=== PATIENT | male | born 1990 | race American Indian/Alaskan Native ===

== ENCOUNTER 2018-01-24 08:23 | Emergency (ER) | payer MEDICAID ==
[2018-01-24 08:30] VITALS: BMI 13.2
[2018-01-24 08:31] VITALS: RESP 20; O2SAT 99
--- NOTE | 2018-01-24 08:46 | ED PDOC ---
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 for medical and psychiatric evaluation prior to incarceration. Patient admits to EtOH consumption. Denies suicidal or homicidal ideations. Patient has no medical complaints at this time. Past Medical History Reviewed: Historical Data, Nursing Documentation, Vital Signs Vital Signs: Last Vital Signs Temp 98.6 F 01/24/18 08:30 Pulse 78 01/24/18 08:30 Resp 20 01/24/18 08:30 BP 128/78 01/24/18 08:30 Pulse Ox 99 01/24/18 08:30 - Medical History PMH: No Chronic Diseases - Surgical History Surgical History: No Surg Hx - Family History Family History: States: Unknown Family Hx - Allergies Allergies/Adverse Reactions: Allergies Allergy/AdvReac Type Severity Reaction Status Date / Time apple Allergy ITCHING Verified 01/24/18 08:45 shellfish derived Allergy ANAPHYLAXIS Verified 01/24/18 08:45 Review of Systems ROS Statement: Except As Marked, All Systems Reviewed And Found Negative Psych: Negative for: Suicidal ideation Physical Exam - Reviewed Nursing Documentation Reviewed: Yes Vital Signs Reviewed: Yes - Physical Exam Appears: Positive for: Non-toxic, No Acute Distress Head Exam: Positive for: ATRAUMATIC, NORMAL INSPECTION, NORMOCEPHALIC Skin: Positive for: Normal Color, Warm, DRY Eye Exam: Positive for: EOMI, Normal appearance, PERRL Neck: Positive for: Normal, Painless ROM Cardiovascular/Chest: Positive for: Regular Rate, Rhythm. Negative for: Murmur Respiratory: Positive for: Normal Breath Sounds. Negative for: Respiratory Distress Gastrointestinal/Abdominal: Positive for: Normal Exam, Soft. Negative for: Tenderness Back: Positive for: Normal Inspection Extremity: Positive for: Normal ROM. Negative for: Pedal Edema, Deformity Neurologic/Psych: Positive for: Alert, Oriented. Negative for: Motor/Sensory Deficits - ECG O2 Sat by Pulse Oximetry: 99 (RA) Pulse Ox Interpretation: Normal Medical Decision Making Medical Decision Makin:45 Plan --Crisis evaluation --Reevaluation Scribe Attestation: Documented by Bharath Brar, acting as a scribe for Ayan Bailey MD. Provider Scribe Attestation: All medical record entries made by the Scribe were at my direction and personally dictated by me. I have reviewed the chart and agree that the record accurately reflects my personal performance of the history, physical exam, medical decision making, and the department course for this patient. I have also personally directed, reviewed, and agree with the discharge instructions and disposition. Disposition - Clinical Impression Clinical Impression: Alcohol ingestion - Patient ED Disposition Is Patient to be Admitted: No Counseled Patient/Family Regarding: Diagnosis, Need For Followup - Disposition Referrals: FAMILY PROVIDER,NO [Primary Care Provider] - Disposition: Discharged/Transfer to Law Enforcement Disposition Time: 11:52 Condition: FAIR Additional Instructions: Medically and psychiatrically stable for incarceration Instructions: Alcohol Abuse and Alcoholism (DC)
[2018-01-24 12:10] VITALS: BP 126/66; PULSE 74; TEMP 98.3
== END 2018-01-24 12:05 ==
LOC: H.ER 08:23
DX: F10.10 Alcohol abuse, uncomplicated